=== PATIENT | female | born 1985 | race Two or more races ===

== ENCOUNTER → 2020-10-15 | Outpatient (CLI) | payer SELFPAY ==
[2014-03-24 12:45] VITALS: BP 119/70
[~2020-10-15] MED LIST: ACET-704 PO; IBUP-1060 PO; PREN1TAB54 PO
== END ==
LOC: LAB 12:19
PROVIDERS: ATTEND Obstetrics & Gynecology
DX: Z01.812 Encounter for preprocedural laboratory examination (principal); Z20.822 Contact with and (suspected) exposure to COVID-19
CPT/HCPCS: U0003